=== PATIENT | male | born 1940 | race Caucasian/White ===

== ENCOUNTER 2022-05-04 14:53 | Emergency (ER) | payer OTHER ==
[2022-05-04 17:23] LABS: BASOPHIL 0.3 % (0-2); EOSINOPHIL 0.1 % (0-7); HCT 39.1 % (42.0-52.0); HGB 12.9 g/dl (13.2-18.0); LYMPHOCYTE 17.1 % (15-48); MCH 31.6 pg (25.0-31.0); MCV 95.8 fL (78.0-100.0); MONOCYTE 8.6 % (0-12); MPV 10.9 fL (6.0-9.5); NEUTROPHIL 73.5 % (41-80); NRBC 0; PLT 181 K/uL (150-400); RBC 4.08 M/uL (4.70-6.00); RDW 13.3 % (11.5-14.0); WBC 7.1 K/uL (4.0-10.5)
[2022-05-04 17:31] LABS: INR 1.04 (0.9-1.2); PROTHROMBIN TIME 13.3 SECONDS (11.9-13.9); PTT 33.2 SECONDS (24.9-34.6)
[2022-05-04 17:46] LABS: BILIRUBIN - TOTAL 0.7 mg/dL (0.2-1.0); CREATININE 1.05 mg/dL (0.67-1.17); GLOBULIN (CALCULATION) 3.4 g/dL; POTASSIUM 3.7 mmol/L (3.5-5.1); TOTAL PROTEIN 7.4 g/dL (6.4-8.2)
[2022-05-04 18:05] LABS: INFLUENZA A NAA NEGATIVE (NEGATIVE)
[2022-05-04 18:10] LABS: CORONAVIRUS 2019 SARS-COV-2 POSITIVE (NEGATIVE)
[2022-05-04] MEDS ORDERED: PAXLOVID CO-PA1 EAC1 PO (18:50)
== END 2022-05-04 18:56 | disposition left against medical advice (07) ==
LOC: FER 14:53
PROVIDERS: Emergency Medicine
DX: U07.1 COVID-19 (principal); R07.89 Other chest pain; Z88.6 Allergy status to analgesic agent; Z88.5 Allergy status to narcotic agent; Z87.891 Personal history of nicotine dependence
CPT/HCPCS: 36415; 71045; 71260; 80053; 83690; 84484; 85025; 85610; 85730; 93005; J7030; Q9967; U0002